=== PATIENT | female | born 1965 | race Caucasian/White ===

== ENCOUNTER 2016-09-18 07:17 | Day surgery (SDC) | payer OTHER ==
[~2016-09-18] VITALS: Ht 157.5 cm; Wt 68.0 kg
[2016-09-18] MEDS ORDERED: BUPIVACAINE-MPF/EPI 0.25% 30 ML VIAL INJ ONE (08:12)
[2016-09-18] MEDS ORDERED: LIDOCAINE 1% 0 ML ONE (08:12)
[2016-09-18] MEDS ORDERED: SEVOFLURANE 250 ML BTL INH ONE (08:14)
[2016-09-18] MEDS ORDERED: LIDOCAINE 2% 100 MG/5 ML SYR IVP ONE (08:14)
[2016-09-18] MEDS ORDERED: PROPOFOL 200 MG/20 ML VIAL IV ONE (08:14)
[2016-09-18] MEDS ORDERED: fentaNYL 0.05 MG/ML VIAL ONE (08:25)
[2016-09-18] MEDS ORDERED: MIDAZOLAM 2 MG/2 ML VIAL ONE (08:25)
[2016-09-18] MEDS ORDERED: ceFAZolin 1,000 MG VIAL IVP ONE (08:35)
[2016-09-18] MEDS ORDERED: ONDANSETRON 4 MG/2 ML VIAL IVP PRN (08:45)
[2016-09-18] MEDS ORDERED: MORPHINE SULFATE 2 MG/ML SYR IVP PRN (09:30)
[2016-09-18] MEDS ORDERED: MORPHINE SULFATE 4 MG/ML SYR IV PRN (09:30)
[2016-09-18] MEDS ORDERED: ACETAMINOPHEN 325 MG TAB PO PRN (09:30)
[2016-09-18] MEDS ORDERED: HYDROmorphone 1 MG/ML AMP IVP PRN (09:30)
[2016-09-18] MEDS ORDERED: HYDROcodone/APAP 5/325 MG 1 TAB TAB PO PRN (09:30)
[2016-09-18] MEDS ORDERED: ONDANSETRON 4 MG/2 ML VIAL IV PRN (09:30)
[2016-09-18] MEDS: HYDROmorphone 1 MG/ML AMP IVP PRN ×4 (09:53→10:23)
[2016-09-18] MEDS ORDERED: HYDROmorphone PFS 2 MG/ML SYR ONE (09:54)
== END 2016-09-18 11:40 | disposition home or self-care (01) ==
LOC: MDS 07:17 → MMU 07:17 → MDS 11:40
PROVIDERS: ATTEND Surgery
DX: D17.24 Benign lipomatous neoplasm of skin and subcutaneous tissue of left leg (principal); I10 Essential (primary) hypertension; D64.9 Anemia, unspecified; F03.90 Unspecified dementia, unspecified severity, without behavioral disturbance, psychotic disturbance, mood disturbance, and anxiety; F17.210 Nicotine dependence, cigarettes, uncomplicated; E66.3 Overweight; E11.9 Type 2 diabetes mellitus without complications; G40.909 Epilepsy, unspecified, not intractable, without status epilepticus; M43.9 Deforming dorsopathy, unspecified
CPT/HCPCS: 27337; 71010; 81025; 93005; J0690; J1170; J2001; J2250; J2704; J3010; J3490; J7060

== ENCOUNTER 2018-10-24 09:48 | Day surgery (SDC) | payer OTHER ==
[~2018-10-24] VITALS: Ht 157.5 cm; Wt 65.3 kg
[2018-10-24] MEDS ORDERED: OMEP20TC12 PO (10:45)
[2018-10-24] MEDS ORDERED: MIDAZOLAM 2 MG/2 ML VIAL ONE (11:07)
[2018-10-24] MEDS ORDERED: fentaNYL 0.05 MG/ML VIAL ONE (11:07)
[2018-10-24] MEDS ORDERED: LIDOCAINE 2% 100 MG/5 ML UJET TP ONE (11:08)
[2018-10-24] MEDS ORDERED: MIDAZOLAM 2 MG/2 ML VIAL IVP ONE (11:15)
[2018-10-24] MEDS ORDERED: fentaNYL 0.05 MG/ML VIAL IVP ONE (11:17)
== END 2018-10-24 12:55 | disposition home or self-care (01) ==
LOC: MDS 09:48 → MMU 09:48 → MDS 12:55
PROVIDERS: ATTEND Internal Medicine Gastroenterology
DX: Z12.11 Encounter for screening for malignant neoplasm of colon (principal); D12.3 Benign neoplasm of transverse colon; D12.5 Benign neoplasm of sigmoid colon; K22.70 Barrett's esophagus without dysplasia; K21.9 Gastro-esophageal reflux disease without esophagitis; R13.10 Dysphagia, unspecified; Z98.890 Other specified postprocedural states; Z98.51 Tubal ligation status; Z79.899 Other long term (current) drug therapy; Z80.0 Family history of malignant neoplasm of digestive organs
CPT/HCPCS: 36415; 43239; 45385; 81025; 86677; 88305; 88313; J2250; J3010

== ENCOUNTER 2020-07-29 06:01 | Day surgery (SDC) | payer OTHER, SELFPAY ==
[~2020-07-29] VITALS: Ht 157.5 cm; Wt 65.8 kg
[~2020-07-29 06:01] MED LIST: OMEP20TC12 PO
[2020-07-29] MEDS ORDERED: MIDAZOLAM 2 MG/2 ML VIAL ONE (08:05)
[2020-07-29] MEDS ORDERED: fentaNYL citrate 0.05 MG/ML VIAL ONE (08:05)
[2020-07-29] MEDS ORDERED: MIDAZOLAM 2 MG/2 ML VIAL IVP ONE (08:55)
== END 2020-07-29 09:00 | disposition home or self-care (01) ==
LOC: MDS 06:01 → MMU 06:02 → MDS 09:00
PROVIDERS: ATTEND Internal Medicine Gastroenterology
DX: R10.13 Epigastric pain (principal); K22.70 Barrett's esophagus without dysplasia; K21.9 Gastro-esophageal reflux disease without esophagitis; K44.9 Diaphragmatic hernia without obstruction or gangrene; Z20.828 Contact with and (suspected) exposure to other viral communicable diseases
CPT/HCPCS: 43235; J2250; U0003; J3010

== ENCOUNTER 2021-10-20 08:12 | Day surgery (SDC) | payer OTHER ==
[~2021-10-20] VITALS: Ht 157.5 cm; Wt 61.2 kg
[~2021-10-20 08:12] MED LIST changes: +OMEP-278 PO; -OMEP20TC12 PO
[2021-10-20] MEDS ORDERED: fentaNYL citrate 0.05 MG/ML VIAL ONE (10:26)
[2021-10-20] MEDS ORDERED: LIDOCAINE 2% 100 MG/5 ML UJET TP ONE (10:27)
[2021-10-20] MEDS ORDERED: MIDAZOLAM 2 MG/2 ML VIAL ONE (10:27)
[2021-10-20] MEDS ORDERED: fentaNYL citrate 0.05 MG/ML VIAL IVP ONE (12:50)
== END 2021-10-20 12:00 | disposition home or self-care (01) ==
LOC: MOR 08:12 → MMU 09:21 → MOR 12:00
PROVIDERS: ATTEND Internal Medicine Gastroenterology
DX: Z12.11 Encounter for screening for malignant neoplasm of colon (principal); K21.9 Gastro-esophageal reflux disease without esophagitis; K22.70 Barrett's esophagus without dysplasia; Z20.822 Contact with and (suspected) exposure to COVID-19; Z79.899 Other long term (current) drug therapy
CPT/HCPCS: 45378; 87426; J3010; J2250